=== PATIENT | male | born 1945 | race Caucasian/White ===

== ENCOUNTER 2016-07-13 12:19 | Inpatient (IN) | payer MEDICARE ==
[~2016-07-13] VITALS: Ht 176.5 cm; Wt 89.0 kg
[~2016-07-13 12:19] MED LIST changes: -ADVI200C PO; -ADVI200C9 PO; -ATEN-102 PO; -CITRTAB13; -CYCL1TAB29 PO; -DIOV80TA2 PO; -FLUT50SP EACH NARE; -GETGO ROLLING W1 MI1; -HYDR-3583 PO; -NEXI40CA PO; -OSTETAB3; -PERC10TA27 PO; -TAMS0.4C67 PO; -TAMS5CAP PO; -VALS80TA2 PO
[2016-07-13] MEDS ORDERED: VALS80TA2 PO (12:46)
[2016-07-13] MEDS ORDERED: TAMS5CAP PO (14:27)
--- NOTE | 2016-07-15 18:00 | MH ---
cc: TIMA DIAZ M.D., ROHIT K. M.D. DATE OF ADMISSION: 07/16/2016 ADMITTING DIAGNOSIS: Lumbar degenerative disk disease. HISTORY OF PRESENT ILLNESS This is a 70-year-old male who presented to our office initially in January 2015 for evaluation of left leg pain. He stated at that time and in 1998 he had an L5-S1 disk rupture and had PT for 3 months which did not help, and he then developed primary to right sciatic area nerve numbness. He underwent a microdiskectomy and states he did well until July of 2014. He states he was in the pool playing volleyball and developed back and left lateral leg pain. He went to chiropractor and had physical therapy and they focused mainly on stretching and stabilization exercises and not acute care occupational therapist for 6 months. He says he continues to do his exercises every morning when he wakes up and the pain is the worse in the morning. He says that in November of 2014 the pain became worse when he went on vacation he did a lot of driving. He used hydrocodone and Advil and still had a lot of pain. The pain does not improve with lying down and even wakes up to take his pain medication. He Denies any right lower extremity symptoms. His pain starts in the low back, radiates into the left buttocks and left lateral thigh and calf. Both his feet go numb. He states his legs start to feel weak. He denies any bowel or bladder incontinence. He has had pain management in 1998 which did not help. He has recently done physical therapy twice a week for 6 weeks. He has seen pain management recently and the pain specialist was recommended surgery at this time. The patient states he has chronic right lateral foot numbness from his previous surgery. His pain has progressed and now involves of both buttocks, lateral thighs and posterior calfs. Left being more than the right. He has sleep apnea. PAST MEDICAL HISTORY: 1. The past medical history significant for hypertension. 2. benign prostatic hypertrophy. 3. gastroesophageal reflux disease 4. L5-S1 disk herniation and surgery 1998 5. cholecystectomy 1993 6. anal fissure repair in 1992. 7. Vein removal from his right leg in 1975 8. Tonsillectomy 1952 9. Sleep apnea. CURRENT MEDICATIONS 1. Valsartan/Hydrochlorothiazide 80 / 12.5 mg daily. 2. Metoprolol succinate ER 50 mg q.h.s. 3. Flomax 0.4 mg q.h.s. 4. Nexium daily. 5. Fluticasone. 6. Nasal spray p.r.n. 7. Percocet 10 / 325 p.r.n. 8. Multivitamin daily 9. Citracal b.i.d. 10. Osteo bio flex b.i.d. ALLERGIES TO MEDICATIONS HE IS ALLERGIC TO PENICILLIN FAMILY HISTORY: His mother is at 81 years old pancreatic cancer. His father and his father is at 49 year's old had brain cancer. He has a sister who is alive 50 year's old good health. he has a brother that is 63 year's old in good health. SOCIAL HISTORY: He is a mechanical engineering manager. He is . He does not have children. He does not smoke. REVIEW OF SYSTEMS CONSTITUTIONAL: He denies any fever or chills. HEAD, EYES, EARS, NOSE, AND THROAT: No pharyngitis, exudates or bloody drainage from his nose CARDIOVASCULAR SYSTEM: Denies any chest pain or palpitations RESPIRATORY: No cough or shortness of breath. GENITOURINARY: No dysuria hematuria. MUSCULOSKELETAL: Positive for low back pain SKIN: No rashes or pleuritis. NEUROLOGIC: No difficulty with speech or memory. GASTROINTESTINAL: No abdominal pain or diarrhea, positive for constipation. PSYCHIATRIC: No anxiety or depression symptoms. ENDOCRINE: No polyuria, polydipsia. HEMATOLOGIC: No bruising or bleeding tendencies. PHYSICAL EXAMINATION HEAD, EYES, EARS, NOSE, AND THROAT:: Normocephalic, atraumatic NECK: Supple. No carotid bruits heard on auscultation. LUNGS: Clear to auscultation bilaterally. HEART: Regular rate and rhythm, normal S1, S2. ABDOMEN: Soft, nontender. Positive bowel sounds. SKIN: The skin reveals no cyanosis or erythema. MUSCULOSKELETAL: He has 5/5 strength in the lower extremities other than right EHL 4/5 strength. He states is from his previous surgery. NEUROLOGIC: The patient is awake, alert, oriented. Cranial nerves II-XII are grossly intact. His speech is fluent compresses comprehension is good. Sensation is decreased in the right lateral thigh and lateral foot which he states is chronic from his previous surgery. Otherwise is intact in lower extremities. Reflexes are absent lower extremities. DATA REVIEWED: An MRI of the lumbar spine from June 30, 2016 which reveals moderate to severe L3-L4 and all L4-L5 spinal stenosis from a combination of facet ligamentum flavum hypertrophy. There is severe L5-S1 degenerative disk disease with disk height collapse along with disk protrusion post-laminectomy changes. IMPRESSION 70-year-old male with a chronic history of low back pain along with associated neurogenic claudication and radiculopathy left more than right. He has failed conservative measures including physical therapy interventional pain management. He knows he has a significant L3-L4, L4 / L5 spinal stenosis along with severe L5-S1 degenerative disc disease with post laminectomy syndrome. He states he cannot live with his current level discomfort activity restrictions and is requesting surgical intervention. PLAN We have discussed the treatment options with the patient which include continued conservative treatment measures with physical therapy and pain management which he has failed, versus surgical intervention. The patient is requesting that we proceed with surgical intervention. We have recommended an L3-S1 decompression with L5-S1 transforaminal interbody fusion. We have discussed the procedure in detail and answered all of his questions to his satisfaction. We have discussed the risks involved with surgery include but not limited to bleeding, infection, muscle weakness voice hoarseness, difficulty swallowing, heart attack, stroke blood clots, non fusion scar tissue formation among others. We have also discussed more limited L3-L5 decompressive laminotomy with the pros and cons of each approach. The patient is requesting that we proceed with decompression reconstruction. No guarantees were given as to the results of the surgery. The patient understands the procedure as well as the risks involved and is requesting that we proceed stating that he is miserable with his current level discomfort is therefore scheduled accordingly. Vishnu Harding MD DICTATED BY: SKIP Restrepo/darien /5:18 PM /5:36 PM
[2016-07-16] MEDS ORDERED: HYDROmorphone HCL PF 2 MG/ML VIAL ONE (06:22)
[2016-07-16] MEDS ORDERED: fentaNYL CITRATE 250 MCG/5 ML AMP ONE (06:22)
[2016-07-16] MEDS ORDERED: ONDANSETRON HCL 4 MG/2 ML VIAL ONE (06:22)
[2016-07-16 06:23] VITALS: BP 142/82; PULSE 64; RESP 18; TEMP 98.3; O2SAT 99
[2016-07-16] MEDS ORDERED: VANCOMYCIN HCL 1000 MG VIAL ONE ×2 (06:55→07:43)
[2016-07-16] MEDS ORDERED: SODIUM CHLOR 0.9% 250 ML INJ 250 ML ONE (06:55)
[2016-07-16] MEDS ORDERED: LACTATED RINGER'S 1000 ML IV SCH (07:15)
[2016-07-16] MEDS ORDERED: INSULIN HUMAN REGULAR 1,000 UNITS/10 ML VIAL SQ PRN (07:15)
[2016-07-16] MEDS ORDERED: METOPROLOL TARTRATE 25 MG TAB PO PRN (07:15)
[2016-07-16] MEDS ORDERED: SODIUM CHLORID 0.9% 500 ML IV SCH (07:15)
[2016-07-16] MEDS ORDERED: VANCOMYCIN HCL 1000 MG ON-CALL/NS 250 ML IV SCH ×2 (07:15)
[2016-07-16] MEDS ORDERED: DEXAMETHASONE SOD PHOS 4 MG/ML VIAL ONE (07:31)
[2016-07-16] MEDS ORDERED: ACETAMINOPHEN 1000 MG/100 ML VIAL IV ONE (07:31)
[2016-07-16] MEDS ORDERED: MIDAZOLAM HCL 2 MG/2 ML VIAL ONE (07:31)
[2016-07-16] MEDS ORDERED: FAMOTIDINE 20 MG/2 ML VIAL ONE (07:38)
[2016-07-16] MEDS ORDERED: THROMBIN (TOPICAL) 5,000 UNIT VIAL ONE (07:42)
[2016-07-16] MEDS ORDERED: GELFOAM SIZE 100 ONE (07:42)
[2016-07-16] MEDS ORDERED: BUPIVACAINE/EPINEPHRINE 0.5% PF 30 ML VIAL ONE (07:42)
[2016-07-16] MEDS: SODIUM CHLOR 0.9% 1000 ML INJ 1,000 ML IV SCH (08:00)
[2016-07-16] MEDS ORDERED: DO NOT ADM ANY ANTICOAGULANT DRUGS XX PRN (11:55)
[2016-07-16] MEDS ORDERED: LACTATED RINGER'S 1000 ML INJ 1,000 ML IV ONE (12:00)
[2016-07-16] MEDS ORDERED: PROPOFOL 200 MG/20 ML AMP IV ONE (12:00)
[2016-07-16] MEDS ORDERED: ONDANSETRON HCL 4 MG/2 ML VIAL IV PUSH ONE (12:00)
[2016-07-16] MEDS ORDERED: ePHEDrine/NS 25 MG/5 ML SYR IV ONE (12:00)
[2016-07-16] MEDS ORDERED: PHENYLEPH/NS 1000 MCG/10 ML SYR IV ONE (12:00)
--- NOTE | 2016-07-16 12:28 | PD.OP ---
Wilton James M.D. 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 endotracheal by Vickie Rhoades Surgeon: Vishnu Harding M.D. Basket Maker(s): Giuliana Bird Operation and Findings: Following initiation of general endotracheal anesthesia, the patient had a Ovalle catheter placed along with sequential compression devices. A gram of vancomycin was administered intravenously and he was turned in a prone position on a Lowell frame, on a Dariel table, and all pressure points adequately padded. The lumbosacral region was then prepped with Chloraprep and sterilely draped with Ioban along the usual sterile draping. A midline skin incision was then made extending from the L3-S1 levels after infiltrating the skin with 0.5% Marcaine with epinephrine solution extending down through the fascia. The muscle fibers were split using avascular fatty plane and detached from the underlying facets, transverse process and lateral portion of lamina on the right side and a self-retaining retractor used for exposure. Intraoperative fluoroscopy was also used for level of confirmation along with microscope magnification for further dissection. There was significant facet and ligamentum flavum hypertrophy noted at the L3-4, L4-5 and L5-S1 levels. The left L3 to L5 laminae were resected along with the medial facetectomy and circumferential spinal canal decompressed removing the hypertrophied ligamentum flavum bilaterally through the unilateral approach. The right L5-S1 facet was also resected and a foraminotomy undertaken with the epidural scar tissue lysis from the previous laminectomy. There was significant disc height collapse along with disc protrusion also leading to the foraminal stenosis. Epidural hemostasis was achieved with bipolar cautery and Gelfoam with thrombin. Subsequently entered into the disc space at the L5-S1 level with a #15 blade and jonelle were used for discectomy. I then placed PEEK cage packed with local autograft bone and more local autograft bone was packed adjacent to the cage in interspace for added interbody fusion. With placement of the cage, I was able to distract the interspace and opened up the foramen further bilaterally. Subsequently in order to facilitate the fusion and provide stabilization, pedicle screw fixation was undertaken using Wet[place] spine screws on entry point at the left L5-S1 levels at the junction of the transverse process and facet. Subsequently using AP and lateral fluoroscopy tap and screw placement. The screws were then connected with a jorge and locked in place with caps. The construct appeared very secure at this point. The area was then copiously irrigated with Vancomycin solution and powder. The retractors were removed and the bipolar cautery used for hemostasis. The muscle fascia was then approximated using 2-0 Vicryl interrupted stitches and then 3-0 Vicryl subcuticular stitches also placed in interrupted fashion. The final skin closure was completed with cyril. A sterile dressing was then applied. The patient then turned in supine position, extubated and taken to recovery room. There were no intraoperative complications. All sponge and needle counts were correct at the end of procedure. Estimated blood loss about 50 ml. Vishnu Harding MD Jul 16, 2016 12:28
[2016-07-16] MEDS ORDERED: ALUMINUM/MAGNESIUM/SIMETH 30 ML CUP PO PRN (12:30)
[2016-07-16] MEDS ORDERED: ACETAMINOPHEN/HYDROcodone 325 MG/10 MG TAB PO PRN (12:30)
[2016-07-16] MEDS ORDERED: RESP: ALBUTEROL 2.5 MG/3 ML NEB (PRN) NEB (12:30)
[2016-07-16] MEDS ORDERED: diphenhydrAMINE HCL 50 MG/ML VIAL IV PRN (12:30)
[2016-07-16] MEDS ORDERED: POTASSIUM CHLOR 20 MEQ PREMIX 100 ML IV PRN (12:30)
[2016-07-16] MEDS ORDERED: PROMETHAZINE INJ 25 MG/ML VIAL IM PRN (12:30)
[2016-07-16] MEDS ORDERED: MENTHOL LOZENGE SUCK-ON PRN (12:30)
[2016-07-16] MEDS ORDERED: CALCIUM GLUCONATE INJ 1 GM in SODIUM CHLORIDE 0.9% INJ 100 ML IV PRN (12:30)
[2016-07-16] MEDS ORDERED: BISACODYL 10 MG SUPP PR PRN (12:30)
[2016-07-16] MEDS ORDERED: SODIUM CHLORIDE 0.9% FLUSH 5 ML FLUSH IVF PRN (12:30)
[2016-07-16] MEDS ORDERED: ACETAMINOPHEN 325 MG TAB PO PRN (12:30)
[2016-07-16] MEDS ORDERED: MAGNESIUM SULFATE INJ 2 GM in SODIUM CHLORIDE 0.9% INJ 100 ML IV PRN (12:30)
[2016-07-16] MEDS ORDERED: CYCLOBENZAPRINE HCL 10 MG TAB PO PRN (12:30)
[2016-07-16] MEDS ORDERED: cloNIDine HCL 0.1 MG TAB PO PRN (12:30)
[2016-07-16] MEDS ORDERED: NALOXONE HCL 0.4 MG/ML AMP IV PRN (12:30)
[2016-07-16] MEDS: NS + KCL 20 MEQ INJ 1,000 ML IV SCH ×2 (12:45→22:08)
--- NOTE | 2016-07-16 12:51 | RADRPT ---
EXAM DATE/TIME: 07/16/2016 08:43 [facility] COMPARISON: No previous studies available for comparison. INDICATIONS: L3-L4 and L4-L5 laminotomies. L5-S1 posterior lumbar fusion. Level localization. MEDICAL HISTORY: None. SURGICAL HISTORY: None. ENCOUNTER: Initial ACUITY: 1 day PAIN SCORE: Non-responsive. LOCATION: Lumbar spine. FINDINGS: Metallic probes are directed at L3-4 and L5-S1 assuming five lumbar type vertebral bodies. CONCLUSION: Localization as described above. Chepe Milan MD FACR on July 16, 2016 at 12:31 Board Certified Radiologist. This report was verified electronically.
[2016-07-16] MEDS: MORPHINE SULFATE 30 MG/30 ML PCA IV SCH (12:56)
[2016-07-16 13:06] LABS: AUTOMATED NEUTROPHIL # 11.9 TH/MM3 (1.8-7.7); BASOPHIL % 0.2 % (0.0-2.0); EOSINOPHIL % 0.1 % (0.0-4.0); HEMATOCRIT 38.9 % (39.0-51.0); HEMO FLAGS DIFF FINAL; LYMPH % 5.9 % (9.0-44.0); LYMPHOCYTE # 0.8 TH/MM3 (1.0-4.8); MEAN CELL VOLUME 90.3 FL (80.0-100.0); MEAN CORPUSCULAR HEMOGLOBIN 31.1 PG (27.0-34.0); MEAN CORPUSCULAR HGB CONC 34.4 % (32.0-36.0); MONO % 1.9 % (0.0-8.0); NEUT % 91.9 % (16.0-70.0); PLATELET COUNT 172 TH/MM3 (150-450); RED BLOOD COUNT 4.31 MIL/MM3 (4.50-5.90); RED CELL DISTRIBUTION WIDTH 13.3 % (11.6-17.2); WHITE BLOOD COUNT 12.9 TH/MM3 (4.0-11.0)
--- NOTE | 2016-07-16 13:14 | RADRPT ---
EXAM DATE/TIME: 07/16/2016 08:43 [facility] COMPARISON: No previous studies available for comparison. INDICATIONS: Post-op L5-S1 posterior lumbar fusion. MEDICAL HISTORY: None. SURGICAL HISTORY: None. ENCOUNTER: Initial ACUITY: 1 day PAIN SCORE: Non-responsive. LOCATION: Lumbar spine. FINDINGS: Unilateral left-sided transpedicular fixation is seen at L5-S1. Allograft is in good position. Alig nment is anatomic. CONCLUSION: Anatomic alignment. Chepe Milan MD FACR on July 16, 2016 at 12:31 Board Certified Radiologist. This report was verified electronically.
[2016-07-16 13:23] LABS: BICARBONATE 27.6 MEQ/L (21.0-32.0); MAGNESIUM 2.1 MG/DL (1.5-2.5); POTASSIUM 4.1 MEQ/L (3.5-5.1)
[2016-07-16 13:28] VITALS: BP_SYST 79; PULSE 71; RESP 18; TEMP 96; O2SAT 99
[2016-07-16] MEDS: PCA - TOTAL MG MORPHINE DELIVERED PER SHIFT SCH ×2 (14:00→22:00)
[2016-07-16 14:12] VITALS: O2SAT 98
[2016-07-16 16:00] VITALS: BP 136/75; PULSE 74; RESP 18; TEMP 96.8; O2SAT 99
[2016-07-16 18:54] VITALS: O2SAT 99
[2016-07-16] MEDS: VANCOMYCIN INJ 1,000 MG in SODIUM CHLOR 0.9% 250 ML INJ 250 ML IV SCH (19:43)
[2016-07-16 20:06] VITALS: BP 123/58; PULSE 75; RESP 18; TEMP 97.7; O2SAT 100
[2016-07-16] MEDS: METOPROLOL SUCCINATE 50 MG EXTENDED RELEASE TAB PO SCH (20:40)
[2016-07-16] MEDS: TAMSULOSIN HCL 0.4 MG CAP PO SCH (20:40)
[2016-07-16] MEDS: PANTOPRAZOLE SOD 20 MG DELAYED RELEASE TAB PO SCH (20:40)
[2016-07-16] MEDS: DOCUSATE SODIUM 100 MG CAP PO SCH (20:40)
[2016-07-16] MEDS: SODIUM CHLORIDE 0.9% FLUSH 5 ML FLUSH IVF SCH (20:40)
[2016-07-16] MEDS ORDERED: ZOLPIDEM TARTRATE 5 MG TAB PO PRN (21:00)
[2016-07-17 00:33] VITALS: BP 128/62; PULSE 69; RESP 19; TEMP 97.1; O2SAT 99
[2016-07-17 04:08] VITALS: BP 126/69; PULSE 62; RESP 18; TEMP 96.6; O2SAT 98
[2016-07-17] MEDS: MORPHINE SULFATE 30 MG/30 ML PCA IV SCH (05:45)
[2016-07-17] MEDS: PCA - TOTAL MG MORPHINE DELIVERED PER SHIFT SCH ×3 (06:00→19:27)
[2016-07-17 07:30] VITALS: BP 121/70; PULSE 64; RESP 16; TEMP 96.8; O2SAT 94
[2016-07-17] MEDS: SODIUM CHLOR 0.9% 1000 ML INJ 1,000 ML IV SCH (08:00)
[2016-07-17] MEDS: NS + KCL 20 MEQ INJ 1,000 ML IV SCH ×3 (08:21→19:26)
[2016-07-17] MEDS: MAGNESIUM HYDROXIDE SUSP 30 ML CUP PO PRN (08:26)
[2016-07-17] MEDS: DOCUSATE SODIUM 100 MG CAP PO SCH ×2 (08:26→19:27)
[2016-07-17] MEDS: VALSARTAN 80 MG TAB PO SCH (08:26)
[2016-07-17] MEDS: HYDROCHLOROTHIAZIDE 12.5 MG CAP PO SCH (08:26)
[2016-07-17] MEDS: VANCOMYCIN INJ 1,000 MG in SODIUM CHLOR 0.9% 250 ML INJ 250 ML IV SCH (08:27)
[2016-07-17] MEDS: SODIUM CHLORIDE 0.9% FLUSH 5 ML FLUSH IVF SCH ×2 (08:31→19:30)
[2016-07-17] MEDS ORDERED: NON-FORMULARY DRUG (Valsartan-Hydrochlorothiazide 1 TAB) PO SCH (09:00)
[2016-07-17 12:03] VITALS: BP 104/54; PULSE 67; RESP 16; TEMP 98.1; O2SAT 98
--- NOTE | 2016-07-17 12:43 | HHI.NSPN ---
History Chief Complaint: Incisional pain Interval History 07/17/16: Pt awake and alert. Complains of incisional pain but controlled with DOWEL SETTING MACHINE OPERATOR. No radiculopathy in LEs. Paresthesias in toes improved. Pt having difficulty urinating since catheter removed. Review of Systems General: Negative for: fever, chills, insomnia Respiratory: Negative for: shortness of breath, cough, sputum Cardiovascular: Negative for: chest pain Gastrointestinal: Negative for: nausea, vomitting, diarrhea, constipation Exam Results Vital Signs Date Time Temp Pulse Resp B/P Pulse Ox O2 Delivery O2 Flow Rate FiO2 07/17/16 11:22 16 07/17/16 07:30 96.8 64 121/70 94 07/16/16 18:54 21 07/16/16 14:12 Nasal Cannula 3.00 Intake and Output 07/16/16 07/16/16 07/17/16 08:00 16:00 00:00 Intake Total 2860 ml 1296 ml Output Total 1900 ml 850 ml Balance 960 ml 446 ml Physical Examination Resp: CTA bilaterally Heart: NSR no murmurs Abd: Soft positive bs Skin: New bandage placed by RN clean and dry. Muscle: Moves LEs with good strength Neuro: Pt awake and alert. Follows commands well. Speech clear and appropriate Lab, Micro, Other Results Laboratory Tests Test 07/16/16 12:52 White Blood Count 12.9 TH/MM3 Red Blood Count 4.31 MIL/MM3 Hemoglobin 13.4 GM/DL Hematocrit 38.9 % Mean Corpuscular Volume 90.3 FL Mean Corpuscular Hemoglobin 31.1 PG Mean Corpuscular Hemoglobin 34.4 % Concent Red Cell Distribution Width 13.3 % Platelet Count 172 TH/MM3 Mean Platelet Volume 7.4 FL Neutrophils (%) (Auto) 91.9 % Lymphocytes (%) (Auto) 5.9 % Monocytes (%) (Auto) 1.9 % Eosinophils (%) (Auto) 0.1 % Basophils (%) (Auto) 0.2 % Neutrophils # (Auto) 11.9 TH/MM3 Lymphocytes # (Auto) 0.8 TH/MM3 Monocytes # (Auto) 0.2 TH/MM3 Eosinophils # (Auto) 0.0 TH/MM3 Basophils # (Auto) 0.0 TH/MM3 CBC Comment DIFF FINAL Differential Comment Sodium Level 139 MEQ/L Potassium Level 4.1 MEQ/L Chloride Level 104 MEQ/L Carbon Dioxide Level 27.6 MEQ/L Anion Gap 7 MEQ/L Blood Urea Nitrogen 12 MG/DL Creatinine 1.00 MG/DL Estimat Glomerular Filtration 74 ML/MIN Rate Random Glucose 145 MG/DL Calcium Level 8.7 MG/DL Magnesium Level 2.1 MG/DL 07/16/16 07/16/16 07/17/16 15:00 23:00 07:00 Intake Total 2860 ml 1296 ml 583 ml Output Total 1900 ml 850 ml 1100 ml Balance 960 ml 446 ml -517 ml Intake Oral 960 ml 720 ml 360 ml IV Total 100 ml 576 ml 223 ml Other 1800 ml Output Urine Total 1850 ml 850 ml 1100 ml Estimated Blood Loss 50 ml # Voids 100 # Bowel Movements 0 0 0 Medical Decision Making Impression and Plan A: 70 y/o M s/p L3, L4, L5, and S1 decompressive laminectomy with L5/S1 TLIF with cage and pedicle screw fixation. P: Continue with pain control St. cath q 6 hours prn unable to void. continue with PT. Yoshi Peñaloza Jul 17, 2016 12:43 pm
[2016-07-17 16:00] VITALS: BP 112/70; PULSE 61; RESP 16; TEMP 96.2; O2SAT 97
[2016-07-17] MEDS: TAMSULOSIN HCL 0.4 MG CAP PO SCH (19:27)
[2016-07-17] MEDS: PANTOPRAZOLE SOD 20 MG DELAYED RELEASE TAB PO SCH (19:28)
[2016-07-17] MEDS: METOPROLOL SUCCINATE 50 MG EXTENDED RELEASE TAB PO SCH (19:28)
[2016-07-17 20:05] VITALS: BP 136/68; PULSE 69; RESP 17; TEMP 99.7; O2SAT 98
[2016-07-17] MEDS: ACETAMINOPHEN/HYDROcodone 325 MG/10 MG TAB PO PRN (20:59)
[2016-07-18 00:10] VITALS: BP 125/58; PULSE 69; RESP 18; TEMP 99.9; O2SAT 95
[2016-07-18] MEDS: PCA - TOTAL MG MORPHINE DELIVERED PER SHIFT SCH ×3 (03:57→22:00)
[2016-07-18] MEDS: ACETAMINOPHEN/HYDROcodone 325 MG/10 MG TAB PO PRN ×2 (04:33→17:35)
[2016-07-18] MEDS: ONDANSETRON HCL 4 MG/2 ML VIAL IV PRN ×2 (04:44→10:54)
[2016-07-18] MEDS: SODIUM CHLOR 0.9% 1000 ML INJ 1,000 ML IV SCH (06:58)
[2016-07-18 07:33] VITALS: BP 123/69; PULSE 68; RESP 16; TEMP 97.2; O2SAT 98
[2016-07-18] MEDS: DOCUSATE SODIUM 100 MG CAP PO SCH ×2 (08:39→20:30)
[2016-07-18] MEDS: MAGNESIUM HYDROXIDE SUSP 30 ML CUP PO PRN (08:39)
[2016-07-18] MEDS: VALSARTAN 80 MG TAB PO SCH (08:39)
[2016-07-18] MEDS: SODIUM CHLORIDE 0.9% FLUSH 5 ML FLUSH IVF SCH ×2 (08:39→20:30)
[2016-07-18] MEDS: HYDROCHLOROTHIAZIDE 12.5 MG CAP PO SCH (08:39)
[2016-07-18] MEDS: NS + KCL 20 MEQ INJ 1,000 ML IV SCH (08:41)
--- NOTE | 2016-07-18 09:56 | HHI.NSPN ---
(Yoshi Peñaloza) History Chief Complaint: Incisional pain (Yoshi Peñaloza) Interval History 07/17/16: Pt awake and alert. Complains of incisional pain but controlled with TUBE TELLER. No radiculopathy in LEs. Paresthesias in toes improved. Pt having difficulty urinating since catheter removed. 07/18/16: Pt awake and alert. Complains of nausea this morning. Pt able to urinate yesterday after straight cath once. No radiculopathy in LEs. Pt hasn' t had BM but passing gas. (Yoshi Peñaloza) Review of Systems General: Negative for: fever, chills, insomnia Respiratory: Negative for: shortness of breath, cough, sputum Cardiovascular: Negative for: chest pain Gastrointestinal: Negative for: nausea, vomitting, diarrhea, constipation ( Yoshi Peñaloza) Exam Results Vital Signs Date Time Temp Pulse Resp B/P Pulse Ox O2 Delivery O2 Flow Rate FiO2 07/18/16 07:33 97.2 68 16 123/69 98 07/17/16 18:08 21 07/16/16 14:12 Nasal Cannula 3.00 Intake and Output 07/17/16 07/17/16 07/18/16 08:00 16:00 00:00 Intake Total 583 ml 1207 ml 240 ml Output Total 1100 ml 500 ml 25 ml Balance -517 ml 707 ml 215 ml (Yoshi Peñaloza) Physical Examination Resp: CTA bilaterally Heart: NSR no murmurs Abd: Soft positive bs Skin: New bandage placed by RN clean and dry. Muscle: Moves LEs with good strength Neuro: Pt awake and alert. Follows commands well. Speech clear and appropriate (Yoshi Peñaloza) Lab, Micro, Other Results 07/17/16 07/17/16 07/18/16 15:00 23:00 07:00 Intake Total 1207 ml 240 ml 240 ml Output Total 500 ml 25 ml 1475 ml Balance 707 ml 215 ml -1235 ml Intake Oral 840 ml 240 ml 240 ml IV Total 367 ml Output Urine Total 500 ml 25 ml 1475 ml # Bowel Movements 0 0 (Yoshi Peñaloza) Medical Decision Making Impression and Plan A: 70 y/o M s/p L3, L4, L5, and S1 decompressive laminectomy with L5/S1 TLIF with cage and pedicle screw fixation. P: Continue with pain control Zofran and Phenergan prn nausea. Continue with PT. Dulcolax for constipation. (Yoshi Peñaloza) Attending Statement The exam, history, and the medical decision-making described in the above note were completed with the assistance of the mid-level provider. I reviewed and agree with the findings presented. I attest that I had a [id number] encounter with the patient on the same day, and personally performed and documented my assessment and findings in the medical record. (Vishnu Harding MD) Yoshi Peñaloza Jul 18, 2016 09:56 Vishnu Harding MD Jul 18, 2016 11:30
[2016-07-18 11:52] VITALS: BP 97/52; PULSE 68; RESP 16; TEMP 96.9; O2SAT 96
[2016-07-18 12:18] VITALS: O2SAT 97
[2016-07-18 16:00] VITALS: BP 113/56; PULSE 63; RESP 16; TEMP 97.3; O2SAT 97
[2016-07-18 18:22] VITALS: BP 96/53; PULSE 70; RESP 16; TEMP 98.5; O2SAT 96
[2016-07-18] MEDS: PANTOPRAZOLE SOD 20 MG DELAYED RELEASE TAB PO SCH (20:30)
[2016-07-18] MEDS: TAMSULOSIN HCL 0.4 MG CAP PO SCH (20:30)
[2016-07-18] MEDS: METOPROLOL SUCCINATE 50 MG EXTENDED RELEASE TAB PO SCH (20:31)
[2016-07-19 00:10] VITALS: BP_SYST 102; BP_SYST 116; BP_DIAS 47; BP_DIAS 69; PULSE 67; RESP 18; TEMP 97.5; O2SAT 95
[2016-07-19] MEDS: NS + KCL 20 MEQ INJ 1,000 ML IV SCH ×2 (00:21→10:21)
[2016-07-19] MEDS: ACETAMINOPHEN/HYDROcodone 325 MG/10 MG TAB PO PRN ×3 (03:34→14:10)
[2016-07-19] MEDS: PCA - TOTAL MG MORPHINE DELIVERED PER SHIFT SCH ×2 (06:00→12:21)
[2016-07-19 07:25] VITALS: BP 119/58; PULSE 71; RESP 16; TEMP 98.1; O2SAT 97
[2016-07-19] MEDS: DOCUSATE SODIUM 100 MG CAP PO SCH (07:53)
[2016-07-19] MEDS: HYDROCHLOROTHIAZIDE 12.5 MG CAP PO SCH (07:54)
[2016-07-19] MEDS: VALSARTAN 80 MG TAB PO SCH (07:54)
[2016-07-19] MEDS: SODIUM CHLORIDE 0.9% FLUSH 5 ML FLUSH IVF SCH (07:56)
[2016-07-19] MEDS: SODIUM CHLOR 0.9% 1000 ML INJ 1,000 ML IV SCH (07:56)
[2016-07-19] MEDS ORDERED: GETGO ROLLING W1 MI1 (09:57)
--- NOTE | 2016-07-19 10:16 | HHI.NSPN ---
History Chief Complaint: Incisional pain Interval History 07/17/16: Pt awake and alert. Complains of incisional pain but controlled with TOW MOTOR MECHANIC. No radiculopathy in LEs. Paresthesias in toes improved. Pt having difficulty urinating since catheter removed. 07/18/16: Pt awake and alert. Complains of nausea this morning. Pt able to urinate yesterday after straight cath once. No radiculopathy in LEs. Pt hasn' t had BM but passing gas. 07/19/16: Pt awake and alert. States nausea resolved after having bm yesterday. Voiding well. Had several BMs. He has incisional back pain but controlled. Review of Systems General: Negative for: fever, chills, insomnia Respiratory: Negative for: shortness of breath, cough, sputum Cardiovascular: Negative for: chest pain Gastrointestinal: Negative for: nausea, vomitting, diarrhea, constipation Exam Results Vital Signs Date Time Temp Pulse Resp B/P Pulse Ox O2 Delivery O2 Flow Rate FiO2 07/19/16 07:25 98.1 71 16 119/58 97 07/18/16 12:18 21 07/16/16 14:12 Nasal Cannula 3.00 Intake and Output 07/18/16 07/18/16 07/18/16 07:59 15:59 23:59 Intake Total 240 ml 720 ml 480 ml Output Total 1475 ml 100 ml 500 ml Balance -1235 ml 620 ml -20 ml Physical Examination Resp: CTA bilaterally Heart: NSR no murmurs Abd: Soft positive bs Skin: No cyanosis or erythema. No edema, erythema, or calf pain in LEs. Muscle: Moves LEs with good strength Neuro: Pt awake and alert. Follows commands well. Speech clear and appropriate Lab, Micro, Other Results 07/18/16 07/18/16 07/19/16 14:59 22:59 06:59 Intake Total 1200 ml 480 ml Output Total 600 ml 1200 ml Balance 600 ml -720 ml Intake Oral 1200 ml 480 ml Output Urine Total 600 ml 1200 ml # Voids 6 # Bowel Movements 1 1 Medical Decision Making Impression and Plan A: 70 y/o M s/p L3, L4, L5, and S1 decompressive laminectomy with L5/S1 TLIF with cage and pedicle screw fixation. P: Discharge pt home Keep incision clean and dry. Discussed restrictions. Yoshi Peñaloza Jul 19, 2016 10:16
[2016-07-19] MEDS ORDERED: HYDR-3583 PO (10:20)
[2016-07-19] MEDS ORDERED: CYCL1TAB29 PO (10:20)
[2016-07-19 11:39] VITALS: BP 95/55; PULSE 78; RESP 16; TEMP 97.8; O2SAT 97
[2016-07-19 13:22] VITALS: O2SAT 98
[2016-07-19 14:10] VITALS: BP 147/69
--- NOTE | 2016-09-17 15:32 | HHI.DS ---
Discharge Summary Admission Date Jul 16, 2016 at 05:34 Discharge Date: Jul 19, 2016 Admitting Diagnosis (1) Low back pain Diagnosis: Principal ICD Code: M54.5 (2) Postlaminectomy syndrome, lumbar Diagnosis: Principal ICD Code: M96.1 (3) Lumbar disc prolapse with compression radiculopathy Diagnosis: Principal ICD Code: M51.16 (4) Facet arthropathy, lumbar Diagnosis: Principal ICD Code: M12.88 (5) Lumbar stenosis with neurogenic claudication Diagnosis: Principal ICD Code: M48.06 (6) Spondylolisthesis at L5-S1 level Diagnosis: Principal ICD Code: M43.17 Procedures L3, L4, L5, and S1 decompressive laminotomies with Lumbar L5/S1 transforaminal interbody fusion with L5/S1 pedicle screw fixation by Dr. Harding on 07/16/16. Brief History This is a 70 y/o M who presented to our office initially in January 2015 for an evaluation of left leg pain. He states in 1998 he had an L5/S1 ruptured disc and had PT for 3 months which did not help and he developed primary right sciatic area nerve numbness. He underwent a microdiscectomy and states he did well until July of 2014. He states he was in the pool playing volleyball and developed back and left lateral leg pain. 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 He states he continues to do his exercises every morning when he wakes up and the pain is worse in the morning. He says in November of 2014 the pain became worse when he went on vacation he did a lot of driving. He used hydrocodone and Advil and still had a lot of pain. the pain does not improve with lying down and he even wakes up to take his pain medication. He denies any right lower extremity symptoms. His pain starts in the low back and radiates into the left buttocks and left lateral thigh and calf. Both his feet go numb. He states his legs start to feel weak. He denies any bowel or bladder incontinence. He has had pain management in 1998 which did not help. He has recently done physical therapy twice a week for 6 weeks. He has seen pain management recently and the pain specialist recommended surgery at this time. the pain states he has chronic right lateral foot numbness from his previous surgery. His pain has progressed and now involves both buttocks, lateral thighs and posterior calfs. Left more than right. Imaging MRI of the lumbar spine from June 30, 2016 which reveals moderate to severe L3/L4 and L4/L5 spinal stenosis from a combination of facet and ligamentum flavum hypertrophy. There is severe L5/S1 degenerative disc disease with disc height collapse along with disc protrusion post laminectomy changes. Hospital Course Pt underwent the above noted procedure performed by Dr. Harding. Postoperatively pt was admitted to the med/surg unit. PT was consulted and his activity was increased. His posto op pain nausea was controlled. Pt was discharged home in stable condition. Pt Condition on Discharge: Stable Discharge Disposition: Discharge Home Discharge Instructions DIET: Follow Instructions for: As Tolerated, No Restrictions ACTIVITIES You can perform: Shower Only-No Bath Activities to Avoid: Lifting/Bending, Prolonged Standing, Strenuous Activity, Bathing, Driving ADDITIONAL Activity Instructio: Lumbar brace on when oob. New Medications: Walker Rolling/GetGo (Walker Rolling/GetGo) 1 Mis Mis 1 EA .ROUTE DIRECTED #1 EA Cyclobenzaprine (Flexeril) 10 Mg Tab 10 MG PO Q8H PRN MUSCLE SPASM #30 TAB Hydrocodone-Acetaminophen (Hydrocodone-Acetaminophen) 10-325 mg Tab 1 TAB PO Q4H PRN PAIN SCALE 1 TO 5 #60 TAB Continued Medications: Esomeprazole (Nexium) Unknown Strength Capdr 20 MG PO HS Ref 0 CAP Metoprolol Succinate ER 24 HR (Metoprolol Succinate ER 24 HR) 50 Mg Tab 50 MG PO HS #30 Ref 0 TAB Tamsulosin (Flomax) 0.4 Mg Cap 0.8 MG PO HS Manage Prostate Problems #60 Ref 0 CAP Valsartan-Hydrochlorothiazide (Valsartan-Hydrochlorothiazide) 80-12.5 Mg Tab 1 TAB PO DAILY Blood Pressure Management #30 Ref 0 TAB Yoshi Peñaloza Sep 17, 2016 15:32
== END 2016-07-19 14:23 | disposition home or self-care (01) | DRG 460 ==
LOC: HSDI 07-16 05:34 → N06A 07-16 13:27
PROVIDERS: ADMIT Neurological Surgery; ATTEND Neurological Surgery
PROC: 0ST40ZZ Resection of Lumbosacral Disc, Open Approach (ICD-10-PCS; 2016-07-16)
PROC: 01NB0ZZ Release Lumbar Nerve, Open Approach (ICD-10-PCS; 2016-07-16)
PROC: 0SG30AJ Fusion of Lumbosacral Joint with Interbody Fusion Device, Posterior Approach, Anterior Column, Open Approach (ICD-10-PCS; principal; 2016-07-16 08:27)
DX: M51.17 Intervertebral disc disorders with radiculopathy, lumbosacral region (principal); I10 Essential (primary) hypertension; M48.06 Spinal stenosis, lumbar region; M48.07 Spinal stenosis, lumbosacral region; M12.88 Other specific arthropathies, not elsewhere classified, other specified site; G89.29 Other chronic pain; G47.30 Sleep apnea, unspecified; K21.9 Gastro-esophageal reflux disease without esophagitis; N40.0 Benign prostatic hyperplasia without lower urinary tract symptoms; R39.198 Other difficulties with micturition; Z90.49 Acquired absence of other specified parts of digestive tract; Z88.0 Allergy status to penicillin; M96.1 Postlaminectomy syndrome, not elsewhere classified; R00.1 Bradycardia, unspecified; Z79.01 Long term (current) use of anticoagulants
CPT/HCPCS: 36415; 71020; 72020; 72100; 76000; 80048; 80053; 81001; 83735; 85025; 85610; 85730; 86850; 86900; 86901; 86920; 93005; 94150; C1713; J0131; J1100; J1170; J2250; J2270; J2370; J2405; J3010; J3370; J3480; J7050; J7120

== ENCOUNTER → 2016-07-13 | Outpatient (CLI) | payer MEDICARE ==
[~2016-07-13] MED LIST: ADVI200C PO; ADVI200C9 PO; ATEN-102 PO; CITRTAB13; CYCL1TAB29 PO; DIOV80TA2 PO; FLUT50SP EACH NARE; GETGO ROLLING W1 MI1; HYDR-3583 PO; METO50TA11 PO; NEXI20CA PO; NEXI40CA PO; OSTETAB3; PERC10TA27 PO; TAMS0.4C67 PO; TAMS5CAP PO; VALS80TA2 PO
[2016-07-13 12:58] LABS: AUTOMATED NEUTROPHIL # 5.7 TH/MM3 (1.8-7.7); BASOPHIL % 0.4 % (0.0-2.0); EOSINOPHIL # 0.1 TH/MM3 (0-0.4); EOSINOPHIL % 0.9 % (0.0-4.0); HEMATOCRIT 40.5 % (39.0-51.0); HEMO FLAGS DIFF FINAL; LYMPH % 25.8 % (9.0-44.0); LYMPHOCYTE # 2.3 TH/MM3 (1.0-4.8); MEAN CELL VOLUME 91.5 FL (80.0-100.0); MEAN CORPUSCULAR HEMOGLOBIN 31.4 PG (27.0-34.0); MEAN CORPUSCULAR HGB CONC 34.3 % (32.0-36.0); NEUT % 63.9 % (16.0-70.0); PLATELET COUNT 207 TH/MM3 (150-450); RED BLOOD COUNT 4.42 MIL/MM3 (4.50-5.90); RED CELL DISTRIBUTION WIDTH 13.3 % (11.6-17.2); WHITE BLOOD COUNT 8.9 TH/MM3 (4.0-11.0)
[2016-07-13 13:01] LABS: BLOOD, URINE NEG (NEG); COMMENT (UR) CULT NOT INDICATED; CULTURE IF INDICATED CULT NOT INDICATED; GLUCOSE,URINE NEG (NEG); KETONE, URINE NEG (NEG); MUCUS URINE FEW /lpf (OCC); NITRITE,URINE NEG (NEG); URINE COLOR LIGHT-YELLOW (YELLW/STRAW)
[2016-07-13 13:05] LABS: APTT (PATIENT) 25.2 SEC (24.3-30.1); INTERNATIONAL NORMALIZED RATIO 0.9 RATIO; PROTHROMBIN TIME - PATIENT 10.2 SEC (9.8-11.6)
--- NOTE | 2016-07-13 13:24 | RADRPT ---
EXAM DATE/TIME: 07/13/2016 13:13 [facility] COMPARISON: No previous studies available for comparison. INDICATIONS : Evaluate for pneumonia, pneumothorax or communicable disease. Pre-op L4-L5 fusion 07/16/16. MEDICAL HISTORY : None. SURGICAL HISTORY : None. ENCOUNTER: Initial ACUITY: 1 day PAIN SCORE: 0/10 LOCATION: Bilateral chest FINDINGS: PA and lateral views of the chest demonstrate the lungs to be symmetrically aerated without evidence of mass, infiltrate or effusion. The cardiomediastinal contours are unremarkable. Osseous structure s are intact. CONCLUSION: 1. No acute cardiopulmonary findings. Herrera Milan MD on July 13, 2016 at 13:22 Board Certified Radiologist. This report was verified electronically.
[2016-07-13 13:26] LABS: ALKALINE PHOSPHATASE 55 U/L (45-117); ALT (GPT) 30 U/L (12-78); ANION GAP 6 MEQ/L (5-15); AST (GOT) 10 U/L (15-37); BICARBONATE 31.5 MEQ/L (21.0-32.0); BLOOD UREA NITROGEN 11 MG/DL (7-18); CHLORIDE 101 MEQ/L (98-107); GLOMERULAR FILTRATION RATE 84 ML/MIN (>89); GLUCOSE,FASTING 104 MG/DL (74-99); POTASSIUM 3.9 MEQ/L (3.5-5.1); SODIUM (NA) 138 MEQ/L (136-145); TOTAL BILIRUBIN ADULT 0.6 MG/DL (0.2-1.0)
--- NOTE | 2016-07-14 23:09 | EKG ---
Date Performed: 07/13/2016 Time Performed: 12:39:04 PTAGE: 70 years EKG: SINUS BRADYCARDIA BORDERLINE ECG NO PREVIOUS TRACING DOCTOR: Rafael Todd Interpretating Date/Time 07/14/2016 23:03:29
== END ==
LOC: CPRE 12:16
PROVIDERS: ATTEND Neurological Surgery
DX: Z01.810 Encounter for preprocedural cardiovascular examination (principal); Z01.812 Encounter for preprocedural laboratory examination; M51.16 Intervertebral disc disorders with radiculopathy, lumbar region; M48.06 Spinal stenosis, lumbar region; M96.1 Postlaminectomy syndrome, not elsewhere classified; R00.1 Bradycardia, unspecified; M43.17 Spondylolisthesis, lumbosacral region; I10 Essential (primary) hypertension; Z79.01 Long term (current) use of anticoagulants
CPT/HCPCS: 36415; 71020; 80053; 81001; 85025; 85610; 85730; 93005